=== PATIENT | female | born 2005 | race Two or more races ===

== ENCOUNTER 2025-02-03 18:11 | Emergency (ER) | payer MEDICAID, SELFPAY ==
[2025-02-03 18:22] VITALS: BP 106/60; PULSE 76; RESP 16; TEMP 36.9; O2SAT 98; BMI 29.2
--- NOTE | 2025-02-03 19:04 | XR_ITS ---
Examination: Complete OB ultrasound greater than 14 weeks Date and time of exam: February 03, 2025, 1921 hours INDICATIONS: Right lower pelvic pain today Findings: Viable intrauterine single fetus with single amniotic sac presentation cephalic Cardiac motion 144 BPM Placenta posterior grade 2 Umbilical cord insertion seen Amniotic fluid volume adequate spine maternal right Cervix 3.8 cm Right ovary 2.8 cm arterial flow, left ovary obscured by bowel gas. Composite estimated gestational age based on BPD, head circumference, abdominal circumference, femur length is 18 weeks 0 days Estimated weight 204 g. Survey of intracranial anatomy, spinal anatomy, abdominal anatomy, four-chamber heart performed with no abnormalities identified. Impression: Viable intrauterine gestation cephalic presentation..
--- NOTE | 2025-02-03 19:04 | XR_ITS ---
Examination: Abdomen sonogram, Limited Date and time of exam: February 03, 2025, 1954 hours INDICATIONS: Right lower abdominal pain today Technique: Real-time adair scale transabdominal sonographic images of the abdomen obtained. Findings: No sonographic visualization appendix IMPRESSION: No sonographic visualization appendix
--- NOTE | 2025-02-03 19:04 | XR_ITS ---
Examination: Retroperitoneal ultrasound, complete Technique: Multiple high resolution grayscale images of the retroperitoneum obtained, including kidneys and bladder. Exam date and time:February 03, 2025 1942 hours INDICATIONS: 15 week by history with flank pain today. FINDINGS: Right kidney 11.2 cm renal cortex 1.5 cm Mild hydronephrosis Left kidney 11.4 cm renal cortex 1.8 cm Moderate hydronephrosis. No renal calculi Contracted urinary bladder. IMPRESSION: Mild right moderate left hydronephrosis No renal calculi
--- NOTE | 2025-02-03 19:05 | PD.EDRME ---
Rapid Medical Screening Exam RME Arrival date/time: 02/03/25 18:11 19F at approximately 17 weeks and with no significant PMH presents to ED with several hours of RLQ/pelvic pain that radiates to back. Patient denies dysuria, N/V, and vaginal bleeding. Patient states this doesn't feel like her normal cramps. Chief Complaint: Abdominal Pain Time Seen by Provider: 02/03/25 19:04 Vital signs: Vital Signs Temperature 98.5 F 02/03/25 18:22 Pulse Rate 76 02/03/25 18:22 Respiratory Rate 16 02/03/25 18:22 Blood Pressure 106/60 02/03/25 18:22 Pulse Oximetry (%) 98 02/03/25 18:22 Oxygen Delivery Method Room Air 02/03/25 18:22
[2025-02-03 19:16] LABS: Basophils # (Auto) 0.0 Thou/mm3 (0.0-0.2); Basophils % (Auto) 0 % (0-2.5); Eosinophils # (Auto) 0.1 Thou/mm3 (0.0-0.5); Eosinophils % (Auto) 1 % (0-10); Hematocrit 34.7 % (36.0-46.0); Hemoglobin 12.3 g/dL (12.0-16.0); Immature Granulocytes Auto 0.07 Thou/mm3 (0.00-0.00); Lymphocytes # (Auto) 2.3 Thou/mm3 (1.0-4.8); Lymphocytes % (Auto) 22 % (10-50); Mean Corpuscular HGB Conc 35.4 g/dl (31.0-37.0); Mean Corpuscular Hemoglobin 31.5 pg (25.0-35.0); Mean Corpuscular Volume 89 fL (80-100); Monocytes # (Auto) 0.6 Thou/mm3 (0.0-0.8); Monocytes % (Auto) 6 % (0-12); Neutrophils # (Auto) 7.3 Thou/mm3 (1.8-7.7); Neutrophils % (Auto) 71 % (37-80); Nucleated Red Blood Cell # 0.00 Thou/mm3 (0.00-0.00); Nucleated Red Blood Cell % 0 /100 WBC (0); Platelet Count 272 Thou/mm3 (140-440); RDW Standard Deviation 37.9 fL (36.4-46.3); Red Blood Count 3.90 Miln/mm3 (4.00-5.20); White Blood Count 10.3 Thou/mm3 (3.6-11.0)
[2025-02-03 19:27] LABS: Collection Type, Urine Clean Catch
[2025-02-03 19:34] LABS: Bilirubin,Urine Negative (Negative); Blood,Urine Negative (Negative); Clarity,Urine Clear (Clear/Hazy); Color,Urine Lt-Yellow (Lt Yel-Yel); Glucose, Urine Negative (Negative); Ketones,Urine 2+ (Negative); Leukocyte Esterase,Urine Positive (Negative); Nitrite,Urine Negative (Negative); PH,Urine 6.0 (5.0-7.0); Protein,Urine Negative (Neg - Trace); RBC,Urine 2 /hpf (0-3); Specific Gravity,Urine 1.016 (1.001-1.035); Squamous Epithelial Cell,Urine 5 /hpf (0-5); Urobilinogen,Urine Negative mg/dL (0.0-1.0); WBC,Urine 4 /hpf (0-5)
[2025-02-03 19:43] LABS: Alanine Aminotransferase 14 U/L (10-49); Albumin, Serum 3.8 gm/dL (3.5-5.0); Albumin/Globulin Ratio 1.4 (1.2-2.2); Alkaline Phosphatase 58 U/L (46-116); Anion Gap 8 (7-16); Aspartate Amino Transferase 20 U/L (0-34); BUN/Creatinine Ratio 10 Ratio (12-20); Bilirubin,Total 0.3 mg/dL (0.3-1.2); Blood Urea Nitrogen < 5 mg/dL (9-23); Calcium 8.7 mg/dL (8.3-10.6); Calcium (Corrected) 8.9 mg/dL (8.5-10.1); Carbon Dioxide 23.3 mMol/L (20.0-31.0); Chloride 109 mMol/L (98-107); Creatinine (Component) 0.5 mg/dL (0.6-1.3); Estimated Creatinine Clearance 178.9 mL/min (>60); Globulin 2.7 gm/dL (2.3-3.5); Glucose 84 mg/dL (74-106); Osmolality,Calculated 275 (275-295); Potassium 3.8 mMol/L (3.4-5.1); Sodium 140 mMol/L (136-145); Total Protein 6.5 gm/dL (5.7-8.2); eGFR > 60 See Note
[2025-02-03 20:16] LABS: Beta HCG,Quantitative 20066 mIU/mL (<5.0)
--- NOTE | 2025-02-03 22:44 | PD.EDABDPN ---
ED Abdominal Pain RME/HPI General Chief Complaint: Abdominal Pain Stated complaint: RLQ ABD PAIN X 1 HR Time seen by provider: 02/03/25 19:04 Arrival date/time: 02/03/25 18:11 RME / HPI RME / HPI narrative: 19F at approximately 17 weeks and with no significant PMH presents to ED with several hours of RLQ/pelvic pain that radiates to back. Patient denies dysuria, N/V, and vaginal bleeding. Patient states this doesn't feel like her normal cramps. Patient denies any fever. Denies any other complaints. Related Data Allergies Allergy/AdvReac Type Severity Reaction Status Date / Time No Known Allergies Allergy Verified 02/03/25 18:15 Review of Systems Review of Systems Narrative Review of Systems: Review of system reviewed and within normal limits except mentioned in HPI ED Exam Narrative Physical exam: VITAL SIGNS: Reviewed. GENERAL APPEARANCE: Alert and interactive, follows commands, no acute distress, HEAD AND FACE: Non-traumatic. ENT: PERRL, pink conjunctivitis, eyelid no trauma, Mucous membrane moist. NECK: Supple, nontender, no nuchal rigidity. CHEST: No tenderness, no crepitus, no paradoxical movement, no retractions. LUNGS: Clear, well ventilated, symmetric, no rales, no wheezing, no ronchi, no stridor, good breath sounds bilaterally. HEART: Regular rate, regular rhythm, no murmur, no gallops. ABDOMEN: Soft, positive bowel sounds, nondistended, no guarding, nontender, no rebound, no masses, RECTAL: Deferred. GENITAL: Deferred. NEUROLOGICAL: Gross motor function intact sensory function intact, Appropriate for age. MUSCULOSKELETAL: low back nontender, full range of motion. EXTREMITIES: Nontender, full range of motion. SKIN: Color pink, dry, no rash, no lacerations, no abrasions, no contusions. LYMPHATICS: Deferred. Course Quality Measures none Orders Category Date Time Status US OB >= 14 weeks Fetus Stat Exams 02/03/25 19:04 Completed US abdomen limited Stat Exams 02/03/25 19:04 Completed US retroperitoneal comp Stat Exams 02/03/25 19:04 Completed Beta HCG,Quantitative Stat Lab 02/03/25 19:11 Completed CBC Stat Lab 02/03/25 19:11 Completed CMP [Comprehensive Metabolic Panel] Stat Lab 02/03/25 19:11 Completed UA [Urinalysis] Stat Lab 02/03/25 19:15 Completed Urine Culture Stat Lab 02/03/25 19:15 Received Vital Signs Vital signs: Vital Signs Temperature 98.5 F 02/03/25 18:22 Pulse Rate 76 02/03/25 18:22 Respiratory Rate 16 02/03/25 18:22 Blood Pressure 106/60 02/03/25 18:22 Pulse Oximetry (%) 98 02/03/25 18:22 Oxygen Delivery Method Room Air 02/03/25 18:22 Abdominal Pain MDM MDM Narrative MDM Narrative:: 19F at approximately 17 weeks and with no significant PMH presents to ED with several hours of RLQ/pelvic pain that radiates to back. Patient denies dysuria, N/V, and vaginal bleeding. Patient states this doesn't feel like her normal cramps. Patient denies any fever. Denies any other complaints. Laboratory workup all came back unremarkable. Including normal ultrasound of the retroperitoneal, ultrasound of the appendix, will came back normal. Ultrasound of the showed single live intrauterine gestation, about 18 weeks, no abnormality noted. Results discussed with the patient. Patient verbalized complete resolution of abdominal pain prior to discharge. Was advised to take [id number] Tylenol as needed for pain. Patient data External records reviewed:: None Clinical information provided by:: patient Social determinants that could affect healthcare access:: none Patient has the following chronic illnesses:: None How is presenting disease/condition affected by chronic disease/condition?: no chronic disease Evaluation data The following diagnostics were reviewed and interpreted by me:: lab results Lab and/or radiology exams considered but not ordered:: None Interpretation Summary: See results [facility] Medications / Prescriptions Medications or Prescriptions considered but not ordered:: None Medication administrations:: None Consultations Consultation(s) initiated? (list below): No Diagnosis Differential diagnosis abdominal pain: abdominal pain, acute appendicitis and constipation Most likely diagnosis given after review of the tests above:: Abdominal pain in Admission Indicated Admission indicated?: not indicated Admission Request Was there a request for admission?: No Disposition Plan Disposition Plan: Discharge Discharge Attestation Discharge Attestation: The patient was given an opportunity to ask questions and understood the discharge instructions. Discharge instructions specifically effects, indications for sooner follow up or return to the emergency department, and the expected course of current diagnosis. Patient condition: Stable Discharge Plan Plan Patient Disposition: HOME (Self Care) Discharge Disposition comment: Stable Prescriptions/Referrals Referrals: No Primary/Family,Physician [Primary Care Provider] - In 1 week Problem List Clinical Impression: Abdominal pain affecting Patient/Caregiver Discharge Instructions Discharge Activity: activity as tolerated Education Materials: Abdominal Pain Additional Instructions: Thank you for the opportunity for serving you today. You are stable for discharged . You are advised to: Follow-up with your PCP in 1 to 2 days Return to ED for worsening of symptoms Increase oral fluids Take [id number] Tylenol as needed for pain Print Language: Croatian Stand Alone Forms: Gloria Award Info., Patient Portal Info Letter PA/LOG PROCESSOR OPERATOR Supervising Physician PA/LOG PROCESSOR OPERATOR Supervising Physician: MD Isaias
== END 2025-02-03 23:14 | disposition home or self-care (01) ==
PROVIDERS: Physician Assistant; Emergency Provider Emergency Medicine
DX: O26.892 Other specified pregnancy related conditions, second trimester (principal); R10.2 Pelvic and perineal pain; R10.31 Right lower quadrant pain; Z3A.18 18 weeks gestation of pregnancy
CPT/HCPCS: 36415; 76705; 76770; 76805; 80053; 81001; 84702; 85025; 87086; 99283